=== PATIENT | female | born 1965 | race Caucasian/White ===

== ENCOUNTER 2016-06-27 13:43 | Emergency (ER) | payer BC ==
--- NOTE | 2016-06-27 14:51 | ED ---
Abdominal Pain HPI - General Chief Complaint: Abdominal Pain Stated Complaint: Abd Pain Time Seen by Provider: 06/27/16 14:29 Source: patient, RN notes reviewed Mode of arrival: ambulatory Limitations: no limitations - History of Present Illness Initial Comments: This is a 51-year-old female presents emergency Department chief complaint constipation. Patient states that she's had intermittent abdominal cramping and pain worse over the last 6 some days since she has not been a little bowel movement. Patient states she struggle with constipation throughout her life no she's been taken laxatives and suffers no relief. She has had multiple scopes by Dr. Francois. Patient states that she just cannot tolerate discomfort this time. Patient had a prior hysterectomy secondary to endometriosis. Patient denies fever, chills, nausea, vomiting. - Related Data Home Medications Medication Instructions Recorded Confirmed Docusate [Colace] 100 mg PO TID 06/27/16 06/27/16 Previous Rx's Medication Instructions Recorded Peg 3350-Na Sulf,Bicarb,Cl/KCl 4,000 ml PO DIRECTED #1 bottle 06/27/16 [Golytely Lavage] Allergies Allergy/AdvReac Type Severity Reaction Status Date / Time codeine Allergy Anaphylaxis Verified 06/27/16 14:29 Review of Systems ROS Statement: Those systems with pertinent positive or pertinent negative responses have been documented in the HPI. ROS Other: All systems not noted in ROS Statement are negative. Past Medical History Past Medical History: No Reported History Additional Past Medical History / Comment(s): bronchitis History of Any Multi-Drug Resistant Organisms: None Reported Past Surgical History: Back Surgery, Hysterectomy Past Psychological History: No Psychological Hx Reported Smoking Status: Current every day smoker Past Alcohol Use History: Occasional Past Drug Use History: None Reported General Exam Limitations: no limitations General appearance: alert, in no apparent distress Head exam: Present: atraumatic, normocephalic, normal inspection Respiratory exam: Present: normal lung sounds bilaterally. Absent: respiratory distress, wheezes, rales, rhonchi, stridor Cardiovascular Exam: Present: regular rate, normal rhythm, normal heart sounds. Absent: systolic murmur, diastolic murmur, rubs, gallop, clicks GI/Abdominal exam: Present: soft, normal bowel sounds. Absent: distended, tenderness, guarding, rebound, rigid Back exam: Absent: CVA tenderness (R), CVA tenderness (L) Skin exam: Present: warm, dry, intact, normal color. Absent: rash Course Vital Signs 06/27/16 13:57 Temperature 98.9 F Pulse Rate 79 Respiratory 18 Rate Blood Pressure 155/77 O2 Sat by Pulse 98 Oximetry Medical Decision Making - Medical Decision Making 51-year-old female presented emergency department patient. Patient's x-ray does show some stool noted Char overburden. Patient was offered lab states that she noticed constipation for patient's pain has been intermittent for last 7 days ever since she has not been able to help normal. There is no evidence of obstruction on x-ray. Patient did have an enema here which she had some stool out and states that she does have some relief of her symptoms. Patient is requesting further medication at home. Patient be given GoLYTELY to go home with return parameters discussed. Disposition Clinical Impression: Constipation Disposition: HOME SELF-CARE Condition: Stable Instructions: Constipation (ED) Additional Instructions: Please return to the Emergency Department if symptoms worsen or any other concerns. Prescriptions: Peg 3350-Na Sulf,Bicarb,Cl/KCl [Golytely Lavage] 4,000 ml PO DIRECTED #1 bottle Time of Disposition: 16:11
--- NOTE | 2016-06-27 15:00 | XR ---
Abdomen HISTORY: Constipation, pain Frontal view of the abdomen on 2 images Comparison to chest x-ray 04 August 2015 There is a spinal curvature, degenerative disc changes in the visualized spine. There is some bluntin g of the left costophrenic angle. No pneumoperitoneum or bowel obstruction is evident. The heart may be enlarged. IMPRESSION: Nonobstructive bowel gas pattern. Indeterminate blunting of the left costophrenic angle. There may be pleural reaction, pleural effusion, cardiomegaly.
[2016-06-27] MEDS ORDERED: PEG 3350-NA SULF,BICARB,CL/KCL 4,000 ML BOTTLE PO ONE (16:11)
[2016-06-27 16:40] VITALS: BP 116/67; PULSE 71; RESP 20; TEMP 97.9
== END 2016-06-27 16:40 | disposition home or self-care (01) ==
LOC: EC 13:43
DX: K59.00 Constipation, unspecified (principal); F17.200 Nicotine dependence, unspecified, uncomplicated; Z79.899 Other long term (current) drug therapy; Z88.5 Allergy status to narcotic agent; Z90.710 Acquired absence of both cervix and uterus
CPT/HCPCS: 74000; 99284

== ENCOUNTER 2017-09-08 15:42 | Inpatient (IN) | payer BC ==
[2017-09-08] MEDS ORDERED: IPRATROPIUM-ALBUTEROL 3 ML NEB INHALATION STA (16:14)
[2017-09-08] MEDS ORDERED: FAMOTIDINE 20 MG TAB PO STA (16:15)
--- NOTE | 2017-09-08 16:19 | ED ---
SOB HPI - General Chief Complaint: Shortness of Breath Stated Complaint: abnormal ekg Time Seen by Provider: 09/08/17 16:07 Source: patient Mode of arrival: ambulatory Limitations: no limitations - History of Present Illness Initial Comments: 52-year-old white female presents with a complaint of some shortness of breath, left calf pain, and left arm numbness. She states that she has had the left leg pain for approximately one year. She has never got it checked out as she states that it is hereditary and everyone in her family gets it. She complains of some increased swelling when she is on her feet a lot. She states that the left arm numbness and the shortness of breath of been present for approximately one month. She denies any cough or chest pain. She denies any measured temperature. She denies any anxiety problems. She denies any known previous cardiac or pulmonary disease. She quit smoking 2 years ago. She denies a history of COPD, asthma, or emphysema. She was seen at her primary care physician's office today and they sent her to the ER for further evaluation. No other complaints or modifying factors. - Related Data Home Medications Medication Instructions Recorded Confirmed Docusate [Colace] 100 mg PO DAILY PRN 06/27/16 09/08/17 Allergies Allergy/AdvReac Type Severity Reaction Status Date / Time codeine Allergy Anaphylaxis Verified 09/08/17 16:43 Review of Systems ROS Statement: Those systems with pertinent positive or pertinent negative responses have been documented in the HPI. ROS Other: All systems not noted in ROS Statement are negative. Past Medical History Past Medical History: No Reported History Additional Past Medical History / Comment(s): bronchitis History of Any Multi-Drug Resistant Organisms: None Reported Past Surgical History: Back Surgery, Hysterectomy Past Psychological History: No Psychological Hx Reported Smoking Status: Former smoker Past Alcohol Use History: Occasional Past Drug Use History: None Reported General Exam - General Exam Comments Initial Comments: GENERAL: The patient is well nourished and well hydrated. VITAL SIGNS: Heart rate, blood pressure, respiratory rate reviewed as recorded in nurse's notes. EYES: Pupils are round and reactive. Extraocular movements are intact. No conjunctival / lid redness or swelling. ENT: No external evidence of injury, swelling, or ecchymosis. Airway is patent. Throat is clear. NECK: Nontender. No swelling or evidence of injury. No subcutaneous emphysema. Trachea is midline. No thyroid mass. HEART: Regular rate and rhythm. Good peripheral pulses. LUNGS/CHEST: Breath sounds clear and equal bilaterally. No rales, rhonchi, or wheezes. No ecchymosis, subcutaneous emphysema, or tenderness. ABDOMEN: Abdomen soft without tenderness. No palpable masses or organomegaly. No peritoneal signs. No abdominal wall swelling or ecchymosis. EXTREMITIES: There is mild tenderness to the bilateral calf soreness worse on the left. There is no leg swelling noted. Normal muscle tone and function. No thoracolumbar tenderness. NEUROLOGIC: Sensation is grossly intact. Cranial nerve exam reveals face is symmetrical, tongue is midline, speech is clear. SKIN: No abrasions or ecchymosis is noted. No induration or masses noted. PSYCHIATRIC: Alert and oriented. Appropriate behavior and judgment. Limitations: no limitations Course Vital Signs 09/08/17 09/08/17 09/08/17 15:47 17:37 17:45 Temperature 99.2 F Pulse Rate 73 74 70 Pulse Rate [ Heat Transfer Technician ] Respiratory 18 18 Rate Blood Pressure 137/67 148/69 O2 Sat by Pulse 95 100 Oximetry 09/08/17 09/08/17 17:49 18:36 Temperature Pulse Rate 72 Pulse Rate [ 71 Heat Transfer Technician ] Respiratory Rate Blood Pressure O2 Sat by Pulse Oximetry Medical Decision Making - Medical Decision Making The patient is seen and examined. All diagnostics are reviewed. An IV is established and she is placed on a manager cardiac cath. She does receive some Pepcid as she was complaining of some heartburn type symptoms. She also receives a DuoNeb breathing treatment. The EKG is completed and shows a normal sinus rhythm at a rate of 69. There is T-wave inversions in the leads V1 through V5. There is no old EKGs for comparison. The DE intervals 186, QRS duration is 98, and the QTC intervals 443. The laboratory does show evidence of anemia and elevation of the liver function studies. The d-dimer is negative. The chest x-ray is reviewed and does not show any acute process. The lower extremity venous Doppler is negative for any evidence of DVT. The laboratories reviewed. There is evidence of anemia. The EKG changes certainly are fairly impressive overall. The possibility of acute coronary syndrome especially in light with the new EKG changes, shortness of breath, and left arm numbness certainly is possible. It is felt as though she would require admission to the hospital. She is agreeable to this plan. Case will be discussed with medicine shortly. - Lab Data Result diagrams: 09/08/17 16:59 09/08/17 16:59 Lab Results 09/08/17 09/08/17 09/08/17 Range/Units 16:59 16:59 16:59 WBC 3.5 L (3.8-10.6) k/uL RBC 2.99 L (3.80-5.40) m/uL Hgb 10.3 L (11.4-16.0) gm/dL Hct 32.7 L (34.0-46.0) % MCV 109.3 H (80.0-100.0) fL MCH 34.4 (25.0-35.0) pg MCHC 31.5 (31.0-37.0) g/dL RDW 14.4 (11.5-15.5) % Plt Count 175 (150-450) k/uL Neutrophils % 59 % Lymphocytes % 32 % Monocytes % 5 % Eosinophils % 2 % Basophils % 1 % Neutrophils # 2.1 (1.3-7.7) k/uL Lymphocytes # 1.1 (1.0-4.8) k/uL Monocytes # 0.2 (0-1.0) k/uL Eosinophils # 0.1 (0-0.7) k/uL Basophils # 0.0 (0-0.2) k/uL Manual Slide Review Performed Hypochromasia Slight Poikilocytosis (manual Present Macrocytosis Marked PT (9.0-12.0) sec INR (<1.2) APTT (22.0-30.0) sec D-Dimer (<0.60) mg/L FEU Sodium 142 (137-145) mmol/L Potassium 4.1 (3.5-5.1) mmol/L Chloride 103 (98-107) mmol/L Carbon Dioxide 26 (22-30) mmol/L Anion Gap 13 mmol/L BUN 18 H (7-17) mg/dL Creatinine 0.94 (0.52-1.04) mg/dL Est GFR (CKD-EPI)AfAm 81 (>60 ml/min/1.73 sqM) Est GFR (CKD-EPI)NonAf 71 (>60 ml/min/1.73 sqM) Glucose 93 (74-99) mg/dL Calcium 9.8 (8.4-10.2) mg/dL Total Bilirubin 1.5 H (0.2-1.3) mg/dL AST 37 H (14-36) U/L ALT 56 H (9-52) U/L Alkaline Phosphatase 47 (38-126) U/L Total Creatine Kinase 100 (30-135) U/L CK-MB (CK-2) 0.4 (0.0-2.4) ng/mL CK-MB (CK-2) Rel Index 0.4 Troponin I <0.012 (0.000-0.034) ng/mL NT-Pro-B Natriuret Pep pg/mL Total Protein 7.0 (6.3-8.2) g/dL Albumin 4.5 (3.5-5.0) g/dL 09/08/17 09/08/17 Range/Units 16:59 16:59 WBC (3.8-10.6) k/uL RBC (3.80-5.40) m/uL Hgb (11.4-16.0) gm/dL Hct (34.0-46.0) % MCV (80.0-100.0) fL MCH (25.0-35.0) pg MCHC (31.0-37.0) g/dL RDW (11.5-15.5) % Plt Count (150-450) k/uL Neutrophils % % Lymphocytes % % Monocytes % % Eosinophils % % Basophils % % Neutrophils # (1.3-7.7) k/uL Lymphocytes # (1.0-4.8) k/uL Monocytes # (0-1.0) k/uL Eosinophils # (0-0.7) k/uL Basophils # (0-0.2) k/uL Manual Slide Review Hypochromasia Poikilocytosis (manual Macrocytosis PT 10.6 (9.0-12.0) sec INR 1.1 (<1.2) APTT 24.6 (22.0-30.0) sec D-Dimer 0.38 (<0.60) mg/L FEU Sodium (137-145) mmol/L Potassium (3.5-5.1) mmol/L Chloride (98-107) mmol/L Carbon Dioxide (22-30) mmol/L Anion Gap mmol/L BUN (7-17) mg/dL Creatinine (0.52-1.04) mg/dL Est GFR (CKD-EPI)AfAm (>60 ml/min/1.73 sqM) Est GFR (CKD-EPI)NonAf (>60 ml/min/1.73 sqM) Glucose (74-99) mg/dL Calcium (8.4-10.2) mg/dL Total Bilirubin (0.2-1.3) mg/dL AST (14-36) U/L ALT (9-52) U/L Alkaline Phosphatase (38-126) U/L Total Creatine Kinase (30-135) U/L CK-MB (CK-2) (0.0-2.4) ng/mL CK-MB (CK-2) Rel Index Troponin I (0.000-0.034) ng/mL NT-Pro-B Natriuret Pep 45 pg/mL Total Protein (6.3-8.2) g/dL Albumin (3.5-5.0) g/dL Disposition Clinical Impression: Leg pain, Dyspnea, Left arm numbness, Anemia, Transaminitis, Acute electrocardiogram changes, Hypertension Disposition: ADMITTED IP TO THIS HOSP Condition: Good Is patient prescribed a controlled substance at d/c from ED?: No Time of Disposition: 19:29 Decision Date: 09/08/17 Decision Time: 19:29
[2017-09-08] MEDS ORDERED: NITROGLYCERIN OINT 1 INCH/GM PACKET TOPICAL STA (16:34)
[2017-09-08] MEDS ORDERED: ASPIRIN 81 MG PO STA (16:34)
--- NOTE | 2017-09-08 17:26 | XR ---
EXAMINATION: XR chest 2V DATE AND TIME: 09/08/2017 5:16 PM ORDERING PROVIDER: Padilla Nathan DO CLINICAL INDICATION: difficulty breathing TECHNIQUE: PA and lateral COMPARISON: 08/04/2015. DESCRIPTION: The lungs are clear. The pleural spaces are negative. The cardiac silhouette is not enlarged. The mediastinal and pleural silhouettes are unremarkable. The skeletal structures are intact without focal findings. The soft tissues are unremarkable. IMPRESSION: NO ACUTE PROCESS.
[2017-09-08 17:47] LABS: Basophils % (A) 1 %; Eosinophils # (A) 0.1 k/uL (0-0.7); Eosinophils % (A) 2 %; HCT 32.7 % (34.0-46.0); HGB 10.3 gm/dL (11.4-16.0); Hypochromasia Slight; Lymphocytes # (A) 1.1 k/uL (1.0-4.8); Lymphocytes % (A) 32 %; MCH 34.4 pg (25.0-35.0); MCHC 31.5 g/dL (31.0-37.0); MCV 109.3 fL (80.0-100.0); Macrocytosis Marked; Mean Platelet Volume 6.8; Monocytes # (A) 0.2 k/uL (0-1.0); Monocytes % (A) 5 %; Neutrophils # (A) 2.1 k/uL (1.3-7.7); Neutrophils % (A) 59 %; Platelet Count 175 k/uL (150-450); RBC 2.99 m/uL (3.80-5.40); RDW 14.4 % (11.5-15.5); WBC 3.5 k/uL (3.8-10.6)
[2017-09-08 17:59] LABS: Albumin 4.5 g/dL (3.5-5.0); Calcium 9.8 mg/dL (8.4-10.2); Potassium 4.1 mmol/L (3.5-5.1); Total Bilirubin 1.5 mg/dL (0.2-1.3)
[2017-09-08 18:01] LABS: D-Dimer 0.38 mg/L FEU (<0.60); INR 1.1 (<1.2); Partial Thromboplastin Time 24.6 sec (22.0-30.0); Prothrombin Time 10.6 sec (9.0-12.0)
[2017-09-08 18:05] LABS: Creatine Kinase 100 U/L (30-135)
[2017-09-08 18:09] LABS: Poikilocytosis (M) Present
[2017-09-08 18:19] LABS: Creatine Kinase MB 0.4 ng/mL (0.0-2.4); Troponin I <0.012 ng/mL (0.000-0.034)
--- NOTE | 2017-09-08 19:08 | US ---
EXAMINATION TYPE: US venous doppler duplex LE DATE OF EXAM: 09/08/2017 6:37 PM COMPARISON: NONE CLINICAL HISTORY: Pain. Swelling SIDE PERFORMED: Bilateral TECHNIQUE: The lower extremity deep venous system is examined utilizing real time linear array sonog renae with graded compression, doppler sonography and color-flow sonography. VESSELS IMAGED: External Iliac Vein (EIV) Common Femoral Vein Deep Femoral Vein Greater Saphenous Vein * Femoral Vein Popliteal Vein Small Saphenous Vein * Proximal Calf Veins (* superficial vessels) FINDINGS: Grayscale, color doppler, spectral doppler imaging performed of the deep veins of the lower extremities. There is normal flow, compressibility, vascular waveforms. IMPRESSION: NEGATIVE FOR DVT, BILATERAL LOWER EXTREMITIES.
[2017-09-08] MEDS ORDERED: HEPARIN SODIUM,PORCINE 5,000 UNIT/ML 1 ML VIAL IV PRN (19:30)
[2017-09-08] MEDS ORDERED: HEPARIN SODIUM,PORCINE 5,000 UNIT/ML 1 ML VIAL IV ONE (19:30)
[2017-09-08] MEDS ORDERED: NITROGLYCERIN SL TABS 0.4 MG TAB SUBLINGUAL PRN (19:30)
[2017-09-08] MEDS ORDERED: DOCUSATE 100 MG CAP PO PRN (19:33)
[2017-09-08] MEDS: HEPARIN SODIUM,PORCINE/D5W PMX 25,000 UNIT in DEXTROSE/WATER 1 500ML.BAG IV SCH (19:50)
[2017-09-08] MEDS: METOPROLOL TARTRATE 25 MG TAB PO SCH (21:41)
[2017-09-08 23:08] LABS: Creatine Kinase 72 U/L (30-135)
[2017-09-08 23:20] LABS: Creatine Kinase MB 0.3 ng/mL (0.0-2.4); Troponin I <0.012 ng/mL (0.000-0.034)
[2017-09-08] MEDS: NITROGLYCERIN OINT 1 INCH/GM PACKET TOPICAL SCH (23:29)
[2017-09-09 01:59] LABS: Cholesterol 149 mg/dL (<200); HDL Cholesterol 28 mg/dL (40-60); LDL Cholesterol,Calculated 78 mg/dL (0-99); Triglycerides 213 mg/dL (<150)
[2017-09-09] MEDS: NITROGLYCERIN OINT 1 INCH/GM PACKET TOPICAL SCH ×3 (03:19→20:09)
[2017-09-09 06:48] LABS: Creatine Kinase 54 U/L (30-135)
[2017-09-09 07:00] LABS: Creatine Kinase MB 0.3 ng/mL (0.0-2.4); Troponin I <0.012 ng/mL (0.000-0.034)
[2017-09-09] MEDS: ASPIRIN 325 MG TAB PO SCH (08:43)
[2017-09-09] MEDS ORDERED: ALPRAZolam 0.25 MG TAB PO PRN (12:12)
[2017-09-09] MEDS ORDERED: SODIUM CHLORIDE 0.9% 1,000 ML in EMPTY BAG 1 BAG IV ONE (12:12)
[2017-09-09] MEDS ORDERED: NITROGLYCERIN SL TABS 0.4 MG TAB SUBLINGUAL PRN (12:12)
[2017-09-09] MEDS ORDERED: ALPRAZolam 0.5 MG TAB PO PRN (12:12)
[2017-09-09] MEDS ORDERED: ATORVASTATIN 80 MG TAB PO STA (12:12)
[2017-09-09] MEDS ORDERED: ASPIRIN 325 MG TAB PO STA (12:12)
--- NOTE | 2017-09-09 12:12 | P.CRDCN ---
History of Present Illness Consult date: 09/09/17 Requesting physician: Michele Rider Consult reason: chest pain Chief complaint: Left leg swelling, epigastric pain, abdominal pain History of present illness: This is a 52-year-old female with no prior documented history of hypertension, no diabetes, no hyperlipidemia, prior history of smoking, who presents to the hospital with symptoms of left leg swelling, she also has been having intermittent epigastric burning which she attributes to her acid reflux, also complaining of lower abdominal pain. Cardiology consultation was requested because of the epigastric burning and the intermittent shortness of breath which she states she's been experiencing. She had an EKG on admission here which showed a normal sinus rhythm with left axis deviation, incomplete right bundle branch block, ST-T wave abnormalities noted in the anterior and inferior leads with evidence of inferior Q waves. According to the patient, she 's been experiencing these heartburn symptoms off and on for some time with or without activity with or without eating. The abdominal discomfort she is complaining of is in the lower abdominal area, she states that she has issues with constipation, and has not moved her bowels since Friday. A venous duplex study of the lower extremities did not reveal any evidence of DVT. Chest x-ray did not reveal any acute process. Blood pressure on admission here 136/60 with a heart rate in the 70s, 95% on room air. Temperature on arrival 99.2. Blood pressure this morning 138/80 with a heart rate in the 60s, 96% on room air. Temperature 97.6. White blood cell count 3.5, hemoglobin 10.3, d-dimer 0.3. Sodium 142, potassium 4.1, BUN 18, creatinine 0.9. Troponin 7 negative 3. BNP level 45. Total bilirubin 1.5, AST 37, ALT 56. Cholesterol 149, LDL 78, triglycerides 216 and HDL 28. At the time of my examination this morning, patient does have significant abdominal and epigastric tenderness on examination. No significant swelling noted in the left leg today. Past Medical History Past Medical History: Pneumonia Additional Past Medical History / Comment(s): bronchitis,hx endometreosis, bells palsy 2009, mono age 26, lt wrist fx-casted,[facility] - [facility], constipation, hemorrhoids(occ blood in stool), when younger had low blood sugar, sciatica, "i was told i was a bleeded" i used to get nose bleeds History of Any Multi-Drug Resistant Organisms: None Reported Past Surgical History: Back Surgery, Hysterectomy, Tonsillectomy Additional Past Surgical History / Comment(s): cyst removed lt lower eye lid, laminectomy L2,3,4. TOTAL HYSTERECTOMY AND LASER SX TO KIDNEY/BOWEL ALL D/T ENDOMETREOSIS. Past Anesthesia/Blood Transfusion Reactions: No Reported Reaction Smoking Status: Former smoker - Past Family History Father History Unknown: Yes Mother Family Medical History: Cancer, Coronary Artery Disease (CAD) Additional Family Medical History / Comment(s): 5 time cancer surviver. had cervical,breast,colon,pancrease,liver. cabg, djd, ddd, pvd Medications and Allergies Home Medications Medication Instructions Recorded Confirmed Type Docusate [Colace] 100 mg PO DAILY PRN 06/27/16 09/08/17 History Allergies Allergy/AdvReac Type Severity Reaction Status Date / Time codeine Allergy Anaphylaxis Verified 09/08/17 16:43 Physical Exam Vitals: Vital Signs Temp Pulse Pulse Resp BP BP Pulse Ox 09/09/17 08:41 97.6 F 60 16 138/80 96 09/09/17 08:06 60 17 09/09/17 04:00 59 L 17 113/61 94 L 09/09/17 00:00 97.6 F 64 16 112/58 94 L 09/08/17 21:04 97.8 F 68 17 128/66 96 09/08/17 19:48 98.3 F 70 18 113/66 95 09/08/17 18:36 71 09/08/17 17:49 72 09/08/17 17:45 70 18 148/69 100 09/08/17 17:37 74 09/08/17 15:47 99.2 F 73 18 137/67 95 Intake and Output 09/08/17 09/09/17 09/09/17 22:59 06:59 14:59 Intake Total 294.333 Balance 294.333 Intake: IV 160 Heparin Sodium,Porcine/ 160 D5w Pmx 25,000 unit In Dextrose/Water 1 500ml. bag @ 9.036 UNITS/KG/HR 20 mls/hr IV .Q24H [facility] Rx #:[id number] Intake, IV Titration 134.333 Amount Heparin Sodium,Porcine/ 134.333 D5w Pmx 25,000 unit In Dextrose/Water 1 500ml. bag @ 9.036 UNITS/KG/HR 20 mls/hr IV .Q24H [facility] Rx #:[id number] Other: Voiding Method Toilet Toilet Toilet # Voids 1 1 Weight 110.677 kg 110.4 kg PHYSICAL EXAMINATION: GENERAL: 52-year-old female complaining of lower abdominal and midepigastric discomfort this morning. HEENT: Head is atraumatic, normocephalic. Pupils equal, round. Sclera anicteric. Conjunctiva are clear. Mucous membranes of the mouth are moist. Neck is supple. There is no elevated jugular venous pressure.] No carotid bruit is heard. HEART EXAMINATION: Heart S1 and S2 with systolic murmur is heard CHEST EXAMINATION: Lungs are clear to auscultation and precussion. No chest wall tenderness is noted on palpation or with deep breathing. ABDOMEN: Soft, positive midepigastric discomfort and lower abdominal tenderness on exam. Bowel sounds are heard. No organomegaly noted. EXTREMITIES: 2+ peripheral pulses with no evidence of peripheral edema and no calf tenderness noted. NEUROLOGIC patient is awake, alert and oriented -3. . Results 09/08/17 16:59 09/08/17 16:59 Cardiac Enzymes 09/08/17 09/08/17 09/08/17 Range/Units 16:59 16:59 22:28 AST 37 H (14-36) U/L CK-MB (CK-2) 0.4 0.3 (0.0-2.4) ng/mL Troponin I <0.012 <0.012 (0.000-0.034) ng/mL 09/09/17 Range/Units 05:30 AST (14-36) U/L CK-MB (CK-2) 0.3 (0.0-2.4) ng/mL Troponin I <0.012 (0.000-0.034) ng/mL Coagulation 09/08/17 09/09/17 09/09/17 Range/Units 16:59 01:17 05:30 PT 10.6 (9.0-12.0) sec APTT 24.6 30.1 H 46.9 H (22.0-30.0) sec Lipids 09/09/17 Range/Units 01:17 Triglycerides 213 H (<150) mg/dL Cholesterol 149 (<200) mg/dL HDL Cholesterol 28 L (40-60) mg/dL CBC 09/08/17 Range/Units 16:59 WBC 3.5 L (3.8-10.6) k/uL RBC 2.99 L (3.80-5.40) m/uL Hgb 10.3 L (11.4-16.0) gm/dL Hct 32.7 L (34.0-46.0) % Plt Count 175 (150-450) k/uL Comprehensive Metabolic Panel 09/08/17 Range/Units 16:59 Sodium 142 (137-145) mmol/L Potassium 4.1 (3.5-5.1) mmol/L Chloride 103 (98-107) mmol/L Carbon Dioxide 26 (22-30) mmol/L BUN 18 H (7-17) mg/dL Creatinine 0.94 (0.52-1.04) mg/dL Glucose 93 (74-99) mg/dL Calcium 9.8 (8.4-10.2) mg/dL AST 37 H (14-36) U/L ALT 56 H (9-52) U/L Alkaline Phosphatase 47 (38-126) U/L Total Protein 7.0 (6.3-8.2) g/dL Albumin 4.5 (3.5-5.0) g/dL Current Medications Generic Name Dose Route Start Last Admin Trade Name Freq PRN Reason Stop Dose Admin Aspirin 325 mg 09/09/17 09:00 09/09/17 08:43 Aspirin PO 325 mg DAILY MICHELE Administration Docusate Sodium 100 mg 09/08/17 19:33 Colace PO DAILY PRN Constipation Heparin Sodium (Porcine) 0 unit 09/08/17 19:30 09/09/17 02:32 Heparin IV 4,000 unit Q6HR PRN Administration Low PTT Protocol Heparin Sodium/Dextrose 25,000 500 mls @ 20 mls/hr 09/08/17 19:45 09/09/17 02 :33 unit/ IV Solution IV 12.03 units/kg/hr .Q24H MICHELE 26.62 mls/hr Protocol Titration 9.036 UNITS/KG/HR Metoprolol Tartrate 25 mg 09/08/17 21:00 09/08/17 21:41 Lopressor PO 25 mg BID MICHELE Administration Nitroglycerin 1 inch 09/09/17 00:00 09/09/17 03:19 Nitro-Bid Oint TOPICAL Not Given Q6HR [facility] Nitroglycerin 0.4 mg 09/08/17 19:30 Nitrostat SUBLINGUAL Q5M PRN Chest Pain Intake and Output 09/08/17 09/09/17 09/09/17 22:59 06:59 14:59 Intake Total 294.333 Balance 294.333 Intake: IV 160 Heparin Sodium,Porcine/ 160 D5w Pmx 25,000 unit In Dextrose/Water 1 500ml. bag @ 9.036 UNITS/KG/HR 20 mls/hr IV .Q24H [facility] Rx #:[id number] Intake, IV Titration 134.333 Amount Heparin Sodium,Porcine/ 134.333 D5w Pmx 25,000 unit In Dextrose/Water 1 500ml. bag @ 9.036 UNITS/KG/HR 20 mls/hr IV .Q24H [facility] Rx #:[id number] Other: Voiding Method Toilet Toilet Toilet # Voids 1 1 Weight 110.677 kg 110.4 kg 09/08/17 16:59 09/08/17 16:59 EKG Interpretations (text) EKG shows a normal sinus rhythm with T-wave inversion in the anterior and inferior leads, inferior Q waves also noted. Repeat EKG shows some improvement in the T-wave inversion. Assessment and Plan Plan: Assessment and plan #1 left leg swelling, VQ scan negative for DVT. #2 epigastric discomfort, somewhat atypical for acute coronary syndrome. Troponins are negative 3. EKG shows a normal sinus rhythm with anterior and inferior T-wave inversion with inferior Q waves. #3 abdominal discomfort, abnormal liver enzymes #4 prior history of smoking Plan We will obtain an echocardiogram with Doppler study. Ultrasound of the gallbladder will be ordered. Because of the EKG changes, patient has been advised to undergo cardiac catheterization, the risks and benefits were explained to the patient in detail. This will be performed tomorrow by Dr. Agueda Campuzano. Further recommendations will be based on these findings and patient's clinical course. DNP note has been reviewed, I agree with a documented findings and plan of care. Patient was seen and examined.
--- NOTE | 2017-09-09 12:33 | US ---
EXAMINATION TYPE: US gallbladder DATE OF EXAM: 09/09/2017 COMPARISON: NONE CLINICAL HISTORY: abd pain, abn liver enzymes. Elevated LFT's, ABD pain EXAM MEASUREMENTS: Liver Length: 21.2 cm Gallbladder Wall: 0.2 cm CBD: 0.3 cm Right Kidney: 11.5 x 4.5 x 4.5 cm Large pt body habitus Pancreas: obscured by overlying bowel gas Liver: Enlarged, heterogeneous, extremely difficult to penetrate Gallbladder: wnl Evidence for sonographic Torres's sign: Yes CBD: wnl Right Kidney: wnl IMPRESSION: 1. Hepatomegaly with heterogeneous pattern of liver can be seen with fatty infiltration, hepatitis or diffuse hepatocellular disease. Correlate clinically.
[2017-09-09] MEDS ORDERED: BISACODYL 10 MG SUPP RECTAL PRN (13:35)
[2017-09-09] MEDS ORDERED: POLYETHYLENE GLYCOL 3350 17 GM POWD.PACK PO PRN (13:35)
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
--- NOTE | 2017-09-09 13:44 | ECHOF ---
Referral Reason:sob MEASUREMENTS -------- HEIGHT: 172.7 cm WEIGHT: 110.2 kg BP: 113/61 RVIDd: 3.8 cm (< 3.3) IVSd: 1.2 cm (0.6 - 1.1) LVIDd: 4.0 cm (3.9 - 5.3) LVPWd: 1.2 cm (0.6 - 1.1) IVSs: 1.5 cm LVIDs: 2.2 cm LVPWs: 1.5 cm LAESV Index (A-L): 18.98 ml/m EPSS: 0.2 cm MV E Aj: 0.78 m/s MV DecT: 390 ms MV A Aj: 0.84 m/s MV E/A Ratio: 0.93 RAP: 5.00 mmHg RVSP: 44.60 mmHg MV EF SLOPE: 58.19 mm/s (70 - 150) MV EXCURSION: 1.53 cm (> 18.000) FINDINGS -------- Sinus rhythm. This was a technically adequate study. The left ventricular size is normal. There is mild concentric left ventricular hypertrophy. Overa ll left ventricular systolic function is normal with, an EF between 55 - 60 %. The right ventricle is mild to moderately enlarged. The right ventricular systolic function is mild ly impaired. Normal LA size by volume 22+/-6 ml/m2. The right atrium is markedly enlarged. The aortic valve is trileaflet, and appears structurally normal. No aortic stenosis or regurgitation. The mitral valve is normal. Mild mitral regurgitation is present. 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 Moderate tricuspid regurgitation present. There is mild pulmonary hypertension. The right vent ricular systolic pressure, as measured by Doppler, is 44.60mmHg. There is no pulmonic regurgitation present. The aortic root size is normal. Normal inferior vena cava with normal inspiratory collapse consistent with estimated right atrial pre ssure of 5 mmHg. There is no pericardial effusion. CONCLUSIONS -------- 1. Sinus rhythm. 2. This was a technically adequate study. 3. The left ventricular size is normal. 4. There is mild concentric left ventricular hypertrophy. 5. Overall left ventricular systolic function is normal with, an EF between 55 - 60 %. 6. The right ventricle is mild to moderately enlarged. 7. The right ventricular systolic function is mildly impaired. 8. Normal LA size by volume 22+/-6 ml/m2. 9. The right atrium is markedly enlarged. 10. The aortic valve is trileaflet, and appears structurally normal. No aortic stenosis or regurgitat ion. 11. Mild mitral regurgitation is present. 12. Two dimensional and doppler echocardiography demonstrates findings consistent with Ebstien's anom juan miguel. 13. Moderate tricuspid regurgitation present. 14. There is mild pulmonary hypertension. 15. There is no pulmonic regurgitation present. 16. The aortic root size is normal. 17. There is no pericardial effusion. SHUTTLE PREPARATION SUPERVISOR: Juan Middleton RDCS
[2017-09-09] MEDS ORDERED: AMINOPHYLLINE 500 MG/20 ML VIAL IV PRN (14:39)
[2017-09-09] MEDS ORDERED: REGADENOSON 0.4 MG/5 ML SYRINGE IV ONE (14:39)
[2017-09-09] MEDS: METOPROLOL TARTRATE 25 MG TAB PO SCH ×2 (18:05→21:38)
[2017-09-09 18:15] LABS: Iron Saturation 37.76 (12.00-45.00)
[2017-09-09] MEDS: HEPARIN SODIUM,PORCINE/D5W PMX 25,000 UNIT in DEXTROSE/WATER 1 500ML.BAG IV SCH (20:18)
[2017-09-09] MEDS: FAMOTIDINE 20 MG TAB PO SCH (20:28)
[2017-09-09] MEDS: HEPARIN SODIUM,PORCINE 5,000 UNIT/ML 1 ML VIAL SQ SCH (21:38)
[2017-09-10 01:48] VITALS: RESP 18
[2017-09-10] MEDS: NITROGLYCERIN OINT 1 INCH/GM PACKET TOPICAL SCH ×4 (06:27→12:14)
[2017-09-10] MEDS: FAMOTIDINE 20 MG TAB PO SCH (06:30)
[2017-09-10 06:58] LABS: Basophils % (A) 1 %; Eosinophils # (A) 0.1 k/uL (0-0.7); Eosinophils % (A) 2 %; HCT 35.2 % (34.0-46.0); HGB 11.2 gm/dL (11.4-16.0); Hypochromasia Slight; Lymphocytes # (A) 0.9 k/uL (1.0-4.8); Lymphocytes % (A) 33 %; MCH 34.3 pg (25.0-35.0); MCHC 31.9 g/dL (31.0-37.0); MCV 107.7 fL (80.0-100.0); Macrocytosis Moderate; Mean Platelet Volume 8.3; Monocytes # (A) 0.1 k/uL (0-1.0); Monocytes % (A) 4 %; Neutrophils # (A) 1.6 k/uL (1.3-7.7); Neutrophils % (A) 59 %; Platelet Count 191 k/uL (150-450); RBC 3.27 m/uL (3.80-5.40); RDW 14.3 % (11.5-15.5); WBC 2.7 k/uL (3.8-10.6)
[2017-09-10 07:11] LABS: Albumin 4.6 g/dL (3.5-5.0); Calcium 9.6 mg/dL (8.4-10.2); Potassium 4.7 mmol/L (3.5-5.1); Total Bilirubin 1.7 mg/dL (0.2-1.3); Total Protein 7.1 g/dL (6.3-8.2)
[2017-09-10] MEDS: HEPARIN SODIUM,PORCINE 5,000 UNIT/ML 1 ML VIAL SQ SCH (08:29)
[2017-09-10] MEDS: ASPIRIN 325 MG TAB PO SCH (08:29)
[2017-09-10] MEDS: METOPROLOL TARTRATE 25 MG TAB PO SCH (08:29)
--- NOTE | 2017-09-10 09:24 | P.PN ---
Progress Note - Text Progress Note Date: 09/10/17 This is an addendum to cardiology consultation dictated yesterday. 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 Patient then was canceled for her heart And scheduled today to undergo a Lexiscan stress test. DNP note has been reviewed, I agree with a documented findings and plan of care. Patient was seen and examined.
--- NOTE | 2017-09-10 10:02 | P.PN ---
Subjective Progress Note Date: 09/10/17 52-year-old female who was sent to the emergency room for further evaluation after she was seen at her primary care physician's office yesterday. Patient states she was evaluated by the AQUACULTURE FARM MANAGER at the office for complaints of intermittent shortness of breath. An EKG was performed which revealed T-wave inversion in V1-V5. The patient reports chronic left lower extremity pain and occasional swelling. She denies shortness of breath or chest pain at the time of examination. She reported some left arm numbness in the emergency room but denies left arm numbness, tingling, or pain at the time of evaluation. She denies nausea or vomiting. Denies change in bowel or bladder habits. The patient has a history of pneumonia, bronchitis, endometriosis, Sage's palsy , constipation and hemorrhoids. She is a former cigarette smoker. She began smoking at age 17 and smoked 1 pack per day. She reports that she quit smoking in 2017. Chest x-ray: Negative for acute process Venous Doppler: Negative for DVT bilaterally of lower extremities Laboratory data: WBC 3.5. Hemoglobin 10.3. Platelet count 175. Sodium 142. Potassium 4.1. BUN 18. Creatinine 0.94. Total bilirubin 1.5. AST 37. ALT 56. Alkaline phosphatase 47. Troponins: Negative 3 BNP: 45 D-dimer: 0.38 The patient was admitted to the hospital under the care of Dr. Rider. Consultations were placed to cardiology. The patient was seen and examined at the bedside on rounds with Dr. Rider. At the time of examination, patient is denying chest pain or pressure. She denies shortness of breath. She denies any pain or discomfort. She is anxious to be discharged from the hospital and states "I am feeling fine. I want to go home". Dr. Rider discussed patient's previous symptoms and EKG findings with patient. Patient aware that cardiology has been consulted to evaluate her. Also discussed elevated liver enzymes and anemia with patient. Patient appears hesitant to reveal specific quantities of alcohol. She states she does not drink every day, but drinks more than once a week. Patient reports drinking beer and liquor. Patient states she was cutting the grass over the weekend and was drinking coconut rum while mowing her lawn. 09/10/2017 Patient seen and examined at the bedside. Patient states she is feeling well this morning. She is hoping to be discharged home later today. She states she did have severe heartburn last night. Patient states she does not take medications outpatient for GERD but will just use TUMS or other OTC medication PRN. She does state that in the past she was on Prevacaid and that helped her heartburn. She is requesting a rx for prevacaid at the time of DC. Ultrasound of the gallbladder was completed yesterday which revealed a normal-appearing gallbladder. Hepatomegaly with heterogeneous pattern of liver can be seen with fatty infiltrates, hepatitis or diffuse hepatocellular disease. Echocardiogram was completed yesterday revealing ejection fraction of 55-60%, right ventricle is mild to moderately enlarged, right atrium is enlarged, mild mitral regurgitation, moderate tricuspid regurgitation, mild pulmonary hypertension. 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 Case was discussed with cardiology yesterday who states that patient's EKG changes are consistent with Ebstein's anomaly. The patient is scheduled for a stress test this morning. Hemoglobin this morning is 11.2, up from 10.3. Iron studies reveal iron level of 108, TIBC 286, iron saturation 37.76, ferritin 395.2, vitamin B12 254, folate 8.0, RBC folate 1141. Objective - Vital Signs Vital signs: Vital Signs Temp 98.3 F 09/10/17 08:01 Pulse 68 09/10/17 08:01 Resp 18 09/10/17 08:01 BP 130/70 09/10/17 08:01 Pulse Ox 98 09/10/17 08:01 Intake & Output 09/09/17 09/10/17 09/10/17 18:59 06:59 18:59 Intake Total 720 Balance 720 Weight 108.8 kg 108.409 kg Intake: Oral 720 Other: Voiding Method Toilet Toilet Toilet # Voids 2 1 # Bowel Movements 0 - Exam GENERAL: This is a 52-year-old female in no apparent distress at the time of examination. Pleasant and cooperative. HEENT: Head is atraumatic, normocephalic. Pupils are equal, round, and reactive to light. Sclerae anicteric. Conjunctivae are clear. Mucus membranes of the mouth are moist. Neck is supple. RESPIRATORY: Clear to ausculation. No wheezes, rales, or rhonchi. No use of accessory muscles. Patient maintaining oxygen saturation greater than 92%. No chest wall tenderness is noted on palpation or with deep breathing. CARDIOVASCULAR: Regular rate and rhythm. S1 and S2 noted. Systolic murmur auscultated. No JVD noted. No S3 or S4 noted. GASTROINTESTINAL: No distention noted. Abdomen soft and round. Normal active bowel sounds auscultated x 4 quadrants. No pain or tenderness noted upon palpation. INTEGUMENTARY: No cyanosis. No jaundice. No rashes noted. No cellulitis noted. EXTREMITIES: 2+ peripheral pulses. No evidence of peripheral edema. Tenderness noted upon palpation of left lower extremity. NEUROLOGIC: Cranial nerves II-XII intact. PSYCHIATRIC: Awake, alert, and oriented X 3. Appropriate affect. Intact judgement and insight. - Labs CBC & Chem 7: 09/10/17 06:40 09/10/17 06:40 Labs: Abnormal Lab Results - Last 24 Hours (Table) 09/09/17 09/09/17 09/10/17 Range/Units 05:30 05:30 06:40 WBC 2.7 L (3.8-10.6) k/uL RBC 3.27 L (3.80-5.40) m/uL Hgb 11.2 L (11.4-16.0) gm/dL MCV 107.7 H (80.0-100.0) fL Lymphocytes # 0.9 L (1.0-4.8) k/uL Glucose (74-99) mg/dL Ferritin 395.2 H (10.0-291.0) ng/mL Total Bilirubin (0.2-1.3) mg/dL ALT (9-52) U/L RBC Folate 1,141 H (280 - 791) ng/mL 09/10/17 Range/Units 06:40 WBC (3.8-10.6) k/uL RBC (3.80-5.40) m/uL Hgb (11.4-16.0) gm/dL MCV (80.0-100.0) fL Lymphocytes # (1.0-4.8) k/uL Glucose 103 H (74-99) mg/dL Ferritin (10.0-291.0) ng/mL Total Bilirubin 1.7 H (0.2-1.3) mg/dL ALT 60 H (9-52) U/L RBC Folate (280 - 791) ng/mL Microbiology - Last 24 Hours (Table) 09/08/17 16:59 Blood Culture - Preliminary Blood No Growth after 24 hours Assessment and Plan Plan: ASSESSMENT: Complains of intermittent shortness of breath with left arm numbness, troponin negative x 3, present on admission, with T-wave inversions noted on EKG, echo revealed Ebstein's anomaly which can cause these EKG changes Chronic left lower extremity edema and discomfort, venous doppler negative for DVT Mildly elevated liver enzymes, etiology unclear, may be secondary to frequent alcohol use Macrocytic, normochromic anemia, type unknown, B12 or folic acid deficiency ruled out History of nicotine dependence, in remission, patient quit smoking in 2017 Obesity: BMI 37.0 PLAN: Cardiology on consult. Appreciate recommendations and input Patient scheduled for stress test today Recommend JAMIA hose to bilateral lower extremities and elevation while in bed Recommend decreasing alcohol intake Home meds as appropriate Monitor labs GI prophylaxis: Pepcid 20 mg by mouth twice a day DVT prophylaxis: Heparin 5000 units subcu every 12 hours Monitor vital signs and address as appropriate Discharge planning: Patient to return home when stable Further recommendations pending patient's course Nurse practitioner note has been reviewed by physician. Signing provider agrees with the documented findings, assessment, and plan of care.
--- NOTE | 2017-09-10 10:31 | NM ---
EXAMINATION TYPE: NM stress lexiscan cardiolite DATE OF EXAM: 09/10/2017 COMPARISON: NONE HISTORY: Chest pain TECHNIQUE: After the intravenous administration of 10.12 mCi Tc 99m Sestamibi - Cardiolite resting S PECT images acquired 45 minutes post injection. The patient received 0.4mg Lexiscan, 26.7 mCi Tc 99m Sestamibi - Stress images obtained [address] injection FINDINGS: Review of stress and rest SPECT images demonstrates small area of reduced uptake involving the inferi or septum on stress images. Gated analysis shows normal wall motion with an estimated left ventricula r ejection fraction of 63 %. IMPRESSION: 1. Question of a small area of stress-induced reversible ischemia involving the inferior septum corre late clinically. 2. Ejection fraction of 63%.
[2017-09-10 12:57] VITALS: BP 120/74; PULSE 70; TEMP 98
--- NOTE | 2017-09-10 13:54 | P.DS ---
Providers Date of admission: 09/08/17 19:30 Expected date of discharge: 09/10/17 Attending physician: Michele Rider Consults: 09/08/17 19:30 Consult Physician Urgent Consulting Provider: Jeffrey Dalton Consult Reason/Comments: possible acs Do you want consulting provider notified?: Yes Primary care physician: Michele Tereso [facility] Course: 52-year-old female who was sent to the emergency room for further evaluation after she was seen at her primary care physician's office yesterday. Patient states she was evaluated by the ECHO TECHNOLOGIST at the office for complaints of intermittent shortness of breath. An EKG was performed which revealed T-wave inversion in V1-V5. The patient reports chronic left lower extremity pain and occasional swelling. She denies shortness of breath or chest pain at the time of examination. She reported some left arm numbness in the emergency room but denies left arm numbness, tingling, or pain at the time of evaluation. She denies nausea or vomiting. Denies change in bowel or bladder habits. The patient has a history of pneumonia, bronchitis, endometriosis, Sage's palsy , constipation and hemorrhoids. She is a former cigarette smoker. She began smoking at age 17 and smoked 1 pack per day. She reports that she quit smoking in 2017. Chest x-ray: Negative for acute process Venous Doppler: Negative for DVT bilaterally of lower extremities Laboratory data: WBC 3.5. Hemoglobin 10.3. Platelet count 175. Sodium 142. Potassium 4.1. BUN 18. Creatinine 0.94. Total bilirubin 1.5. AST 37. ALT 56. Alkaline phosphatase 47. Troponins: Negative 3 BNP: 45 D-dimer: 0.38 The patient was admitted to the hospital under the care of Dr. Rider. Consultations were placed to cardiology. The patient was seen and examined at the bedside on rounds with Dr. Rider. At the time of examination, patient is denying chest pain or pressure. She denies shortness of breath. She denies any pain or discomfort. She is anxious to be discharged from the hospital and states "I am feeling fine. I want to go home". Dr. Rider discussed patient's previous symptoms and EKG findings with patient. Patient aware that cardiology has been consulted to evaluate her. Also discussed elevated liver enzymes and anemia with patient. Patient appears hesitant to reveal specific quantities of alcohol. She states she does not drink every day, but drinks more than once a week. Patient reports drinking beer and liquor. Patient states she was cutting the grass over the weekend and was drinking coconut rum while mowing her lawn. 09/10/2017 Patient seen and examined at the bedside. Patient states she is feeling well this morning. She is hoping to be discharged home later today. She states she did have severe heartburn last night. Patient states she does not take medications outpatient for GERD but will just use TUMS or other OTC medication PRN. She does state that in the past she was on Prevacaid and that helped her heartburn. She is requesting a rx for prevacaid at the time of DC. Ultrasound of the gallbladder was completed yesterday which revealed a normal-appearing gallbladder. Hepatomegaly with heterogeneous pattern of liver can be seen with fatty infiltrates, hepatitis or diffuse hepatocellular disease. Echocardiogram was completed yesterday revealing ejection fraction of 55-60%, right ventricle is mild to moderately enlarged, right atrium is enlarged, mild mitral regurgitation, moderate tricuspid regurgitation, mild pulmonary hypertension. 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 Case was discussed with cardiology yesterday who states that patient's EKG changes are consistent with Ebstein's anomaly. The patient is scheduled for a stress test this morning. Hemoglobin this morning is 11.2, up from 10.3. Iron studies reveal iron level of 108, TIBC 286, iron saturation 37.76, ferritin 395.2, vitamin B12 254, folate 8.0, RBC folate 1141. The patient underwent a stress test on 09/10/2017 which revealed questionable small area of stress-induced reversible ischemia involving the inferior septum. Ejection fraction of 63%. The patient was cleared for discharge from a cardiology standpoint and she was advised to follow up on an outpatient basis for further evaluation. The patient was deemed stable for discharge per Dr. Rider. She is to follow up on an outpatient basis with her primary care physician and cardiology. A prescription for Prevacid was sent to the patient's preferred pharmacy per her request for heartburn. DISCHARGE DIAGNOSIS: Complaints of intermittent shortness of breath with left arm numbness, troponin negative x 3, present on admission, with T-wave inversions noted on EKG, echo revealed Ebstein's anomaly which can cause these EKG changes Chronic left lower extremity edema and discomfort, venous doppler negative for DVT Mildly elevated liver enzymes, etiology unclear, may be secondary to frequent alcohol use Macrocytic, normochromic anemia, type unknown, B12 or folic acid deficiency ruled out History of nicotine dependence, in remission, patient quit smoking in 2017 Obesity: BMI 37.0 Nurse practitioner note has been reviewed by physician. Signing provider agrees with the documented findings, assessment, and plan of care. Patient Condition at Discharge: Good Plan - Discharge Summary Discharge Rx Participant: No New Discharge Prescriptions: New Lansoprazole [Prevacid] 30 mg PO DAILY #30 cap Continue Docusate [Colace] 100 mg PO DAILY PRN PRN Reason: Constipation Discharge Medication List Docusate [Colace] 100 mg PO DAILY PRN 06/27/16 [History] Lansoprazole [Prevacid] 30 mg PO DAILY #30 cap 09/10/17 [Rx] Follow up Appointment(s)/Referral(s): Prasanna Campuzano MD [STAFF PHYSICIAN] - 1 Week Michele Rider MD [Primary Care Provider] - 1 Week Discharge Disposition: HOME SELF-CARE
--- NOTE | 2017-09-10 14:56 | P.PN ---
Subjective Progress Note Date: 09/10/17 This is a 52-year-old female with no prior documented history of hypertension, no diabetes, no hyperlipidemia, prior history of smoking, who presents to the hospital with symptoms of left leg swelling, she also has been having intermittent epigastric burning which she attributes to her acid reflux, also complaining of lower abdominal pain. Cardiology consultation was requested because of the epigastric burning and the intermittent shortness of breath which she states she's been experiencing. She had an EKG on admission here which showed a normal sinus rhythm with left axis deviation, incomplete right bundle branch block, ST-T wave abnormalities noted in the anterior and inferior leads with evidence of inferior Q waves. According to the patient, she 's been experiencing these heartburn symptoms off and on for some time with or without activity with or without eating. The abdominal discomfort she is complaining of is in the lower abdominal area, she states that she has issues with constipation, and has not moved her bowels since Friday. A venous duplex study of the lower extremities did not reveal any evidence of DVT. Chest x-ray did not reveal any acute process. Blood pressure on admission here 136/60 with a heart rate in the 70s, 95% on room air. Temperature on arrival 99.2. Blood pressure this morning 138/80 with a heart rate in the 60s, 96% on room air. Temperature 97.6. White blood cell count 3.5, hemoglobin 10.3, d-dimer 0.3. Sodium 142, potassium 4.1, BUN 18, creatinine 0.9. Troponin 7 negative 3. BNP level 45. Total bilirubin 1.5, AST 37, ALT 56. Cholesterol 149, LDL 78, triglycerides 216 and HDL 28. At the time of my examination this morning, patient does have significant abdominal and epigastric tenderness on examination. No significant swelling noted in the left leg today. 09/10/2017 Patient was seen and examined this morning, denied any chest discomfort, breathing overall has been stable. Echocardiogram with Doppler study was performed which revealed mild concentric LVH, overall ejection fraction 55-60%, 2-dimensional and Doppler echocardiographic demonstrate findings consistent with Ebstein's anomaly, moderate tricuspid regurg present. Patient did undergo a Lexiscan stress test today, there was a questionable small area of stress- induced reversible ischemia noted. These results were reviewed by Dr. Agueda Campuzano who felt that the patient could be discharged home today to follow-up with him in the office post discharge. All bladder ultrasound was performed yesterday which revealed hepatomegaly with heterogeneous pattern of the liver can be seen with fatty infiltration, hepatitis, or diffuse hepatocellular disease. Hemodynamically the patient is stable today, denies any chest pain, breathing has been stable. Objective - Vital Signs Vital signs: Vital Signs Temp 98 F 09/10/17 12:00 Pulse 70 09/10/17 12:00 Resp 18 09/10/17 12:00 BP 120/74 09/10/17 12:00 Pulse Ox 97 09/10/17 12:00 Intake & Output 09/09/17 09/10/17 09/10/17 18:59 06:59 18:59 Intake Total 720 240 Balance 720 240 Weight 108.8 kg 108.409 kg Intake: Oral 720 240 Other: Voiding Method Toilet Toilet Toilet # Voids 2 1 1 # Bowel Movements 0 - Exam PHYSICAL EXAMINATION: 52-year-old female in no apparent distress at the time of my examination. GENERAL: 52-year-old female complaining of lower abdominal and midepigastric discomfort this morning. HEENT: Head is atraumatic, normocephalic. Pupils equal, round. Sclera anicteric. Conjunctiva are clear. Mucous membranes of the mouth are moist. Neck is supple. There is no elevated jugular venous pressure.] No carotid bruit is heard. HEART EXAMINATION: Heart S1 and S2 with systolic murmur is heard CHEST EXAMINATION: Lungs are clear to auscultation and precussion. No chest wall tenderness is noted on palpation or with deep breathing. ABDOMEN: Soft, positive midepigastric discomfort and lower abdominal tenderness on exam. Bowel sounds are heard. No organomegaly noted. EXTREMITIES: 2+ peripheral pulses with no evidence of peripheral edema and no calf tenderness noted. NEUROLOGIC patient is awake, alert and oriented -3. - Labs CBC & Chem 7: 09/10/17 06:40 09/10/17 06:40 Labs: Abnormal Lab Results - Last 24 Hours (Table) 09/09/17 09/09/17 09/10/17 Range/Units 05:30 05:30 06:40 WBC 2.7 L (3.8-10.6) k/uL RBC 3.27 L (3.80-5.40) m/uL Hgb 11.2 L (11.4-16.0) gm/dL MCV 107.7 H (80.0-100.0) fL Lymphocytes # 0.9 L (1.0-4.8) k/uL Glucose (74-99) mg/dL Ferritin 395.2 H (10.0-291.0) ng/mL Total Bilirubin (0.2-1.3) mg/dL ALT (9-52) U/L RBC Folate 1,141 H (280 - 791) ng/mL 09/10/17 Range/Units 06:40 WBC (3.8-10.6) k/uL RBC (3.80-5.40) m/uL Hgb (11.4-16.0) gm/dL MCV (80.0-100.0) fL Lymphocytes # (1.0-4.8) k/uL Glucose 103 H (74-99) mg/dL Ferritin (10.0-291.0) ng/mL Total Bilirubin 1.7 H (0.2-1.3) mg/dL ALT 60 H (9-52) U/L RBC Folate (280 - 791) ng/mL Microbiology - Last 24 Hours (Table) 09/08/17 16:59 Blood Culture - Preliminary Blood No Growth after 24 hours Assessment and Plan Plan: Assessment and plan #1 left leg swelling, VQ scan negative for DVT. #2 epigastric discomfort, somewhat atypical for acute coronary syndrome. Troponins are negative 3. EKG shows a normal sinus rhythm with anterior and inferior T-wave inversion with inferior Q waves. #3 abdominal discomfort, abnormal liver enzymes #4 prior history of smoking Plan Echocardiogram with Doppler study was performed which revealed a normal left ventricular systolic function. 2-dimensional and Doppler echo demonstrated findings consistent with Ebstein's anomaly, moderate tricuspid regurg. Neda scan stress test demonstrated a small area of reduced uptake involving the inferior septum on stress images, gaited analysis showed normal wall motion with an estimated ejection fraction of 63%. Results were reviewed by Dr. Agueda Campuzano who felt that the patient could safely be discharged home today and follow -up with him in the office in 2-3 weeks. DNP note has been reviewed, I agree with a documented findings and plan of care. Patient was seen and examined.
--- NOTE | 2017-09-10 15:01 | EST ---
EXERCISE STRESS AGE: 52 SEX: F HT: 68" WT: 243 PROTOCOL: Lexiscan Cardiolite Stress Test HEART RATE REST: 60 BLOOD PRESSURE REST: 135/95 MAXIMUM HEART RATE ACHIEVED: 82 MAXIMUM BLOOD PRESSURE: 137/82 85% MPHR: 144 100% MPHR: 169 INDICATIONS: Chest pain, Lucila anomaly CLINICAL INFORMATION: Baseline rhythm is sinus mechanism, rate of 60. Normal axis. RSR prime. Nonspecific ST-T changes. Baseline blood pressure 135/95 mmHg. Patient received an injection of Lexiscan. Electrocardiographic monitoring revealed rare PVCs. There was no evidence of diagnostic ischemic ST deviation. Cardiolite was injected per protocol. CONCLUSION: 1. Nondiagnostic electrocardiograph stress testing with rare premature ventricular contractions. 2. Nuclear images will be reported separately. MMODL / IJN: [id number] /
== END 2017-09-10 14:05 | disposition home or self-care (01) | DRG 307 ==
LOC: EC 15:42 → 6SEL 19:30
PROVIDERS: ADMIT Family Medicine; ATTEND Family Medicine
DX: Q22.5 Ebstein's anomaly (principal); D64.9 Anemia, unspecified; E66.9 Obesity, unspecified; I07.1 Rheumatic tricuspid insufficiency; I10 Essential (primary) hypertension; I45.10 Unspecified right bundle-branch block; K21.9 Gastro-esophageal reflux disease without esophagitis; K59.00 Constipation, unspecified; Z68.37 Body mass index [BMI] 37.0-37.9, adult; Z82.49 Family history of ischemic heart disease and other diseases of the circulatory system; Z87.01 Personal history of pneumonia (recurrent); Z87.891 Personal history of nicotine dependence; Z90.710 Acquired absence of both cervix and uterus; Z88.5 Allergy status to narcotic agent; R74.8 Abnormal levels of other serum enzymes; R60.0 Localized edema
CPT/HCPCS: 36415; 71046; 76705; 78452; 80053; 80061; 82550; 82553; 82607; 82728; 82746; 82747; 83540; 83550; 83880; 84443; 84484; 85025; 85379; 85610; 85730; 87040; 93005; 93017; 93306; 93970; 94640; 96374; 99285

== ENCOUNTER → 2019-02-20 | Outpatient (CLI) | payer BC ==
--- NOTE | 2019-02-20 16:42 | CT ---
EXAMINATION TYPE: CT abdomen w con DATE OF EXAM: 02/20/2019 HISTORY: Intra-abdominal pain, RT side pain, bloating, weight gain CT DLP: 1587.90mGycm Automated Exposure Control for Dose Reduction was Utilized. CONTRAST: CT scan of the abdomen was performed with IV Contrast, patient injected with 100 mL of Isovue 300. COMPARISON: Gallbladder ultrasound dated 09/09/2017 FINDINGS: LUNG BASES: No significant abnormality is appreciated. LIVER/GB: Hepatic parenchyma is diffusely hypoattenuated in comparison to that of the spleen, most co mmonly seen in hepatic steatosis. This finding limits evaluation for hepatic masses. This appears at least moderate in degree with probable focal fatty sparing in the subcapsular right hepatic lobe and around the gallbladder fossa. The liver is enlarged. No intrahepatic biliary ductal dilatation. No ch olelithiasis on CT. PANCREAS: No significant abnormality is seen. SPLEEN: There is an arterially enhancing splenic lesion measuring 1.6 x 1.4 cm on series 3 image 22 t hat becomes less conspicuous on delayed images. This likely represents a hemangioma given this charac teristic and could be confirmed with MRI of the abdomen. The spleen is enlarged injuring 17 cm in scrap metal burner niocaudal dimension. Additional small 9 mm lesion on image 20 is hypoattenuated and could represent a cyst. ADRENALS: No nodularity or thickening. KIDNEYS: Kidneys enhance and excrete symmetrically without hydronephrosis. BOWEL: Very small hiatal hernia. Mild degree colonic fecal stasis. No dilated large or small bowel. LYMPH NODES: No greater than 1cm abdominal or pelvic lymph nodes are appreciated. OSSEOUS STRUCTURES: Moderate degenerative changes are most focal at the lower lumbar spine although t he lumbar spine is incompletely visualized. IMPRESSION: 1. Hepatosplenomegaly. Hepatic steatosis appears at least moderate grade with probable area of focal fatty sparing in the subcapsular right hepatic lobe and around the gallbladder fossa, typical locatio ns. 2. Enhancing splenic lesion with characteristics favoring hemangioma. This could be confirmed with MR abdomen. Additional subcentimeter splenic lesion could represent a small cyst.
== END | disposition home or self-care (01) ==
LOC: RADCTMAIN 11:20
PROVIDERS: ATTEND Family Medicine
DX: D73.89 Other diseases of spleen (principal); K76.0 Fatty (change of) liver, not elsewhere classified; Z88.5 Allergy status to narcotic agent; Z91.030 Bee allergy status
CPT/HCPCS: 74160; Q9967 ×2

== ENCOUNTER → 2019-03-08 | Outpatient (CLI) | payer BC | END | disposition home or self-care (01) | LOC: RADMRIMAIN 16:49 | PROVIDERS: ATTEND Nurse Practitioner Women's Health | DX: Z53.9 Procedure and treatment not carried out, unspecified reason (principal) ==

== ENCOUNTER → 2019-03-24 | Outpatient (CLI) | payer BC ==
[2019-03-24 07:43] LABS: Basophils % (A) 1 %; Eosinophils % (A) 1 %; HCT 31.5 % (34.0-46.0); HGB 9.7 gm/dL (11.4-16.0); Hypochromasia Slight; Lymphocytes # (A) 0.8 k/uL (1.0-4.8); Lymphocytes % (A) 29 %; MCH 34.5 pg (25.0-35.0); MCHC 30.9 g/dL (31.0-37.0); MCV 111.7 fL (80.0-100.0); Macrocytosis Marked; Mean Platelet Volume 8.3; Monocytes # (A) 0.1 k/uL (0-1.0); Monocytes % (A) 5 %; Neutrophils # (A) 1.8 k/uL (1.3-7.7); Neutrophils % (A) 63 %; Platelet Count 161 k/uL (150-450); RBC 2.82 m/uL (3.80-5.40); RDW 15.3 % (11.5-15.5); WBC 2.9 k/uL (3.8-10.6)
[2019-03-24 08:00] LABS: Albumin 4.4 g/dL (3.5-5.0); Calcium 9.2 mg/dL (8.4-10.2); Potassium 4.8 mmol/L (3.5-5.1); Total Bilirubin 2.7 mg/dL (0.2-1.3); Total Protein 7.3 g/dL (6.3-8.2)
[2019-03-24 08:16] LABS: Polychromasia Present
--- NOTE | 2019-03-24 13:39 | NM ---
EXAMINATION TYPE: NM hepatobiliary w EF DATE OF EXAM: 03/24/2019 COMPARISON: CT abdomen 02/20/2019 HISTORY: Cholecystitis, abdomen pain and heartburn TECHNIQUE: After the intravenous administration of 4.6 mCi Tc 99m Mebrofenin hepatobiliary scintigrap hy is performed. Immediate images post injection. FINDINGS: There is satisfactory initial accumulation of tracer by the liver. The gallbladder is visualized wit hin 4 minutes. The small bowel activity is noted on delayed images. At one hour 8 ounces of oral en sure plus is given to mimic CCK and gallbladder ejection fraction is calculated at 63 %, in the cristofer l range. Therefore there is no scintigraphic evidence of cystic or common bile duct obstruction to s uggest acute cholecystitis or gallbladder dyskinesia. IMPRESSION: Normal gallbladder ejection fraction. Some delay in visualization of small bowel activity .
== END | disposition home or self-care (01) ==
LOC: RADNMMAIN 06:53
PROVIDERS: ATTEND Surgery Plastic and Reconstructive Surgery
DX: K81.9 Cholecystitis, unspecified (principal); Z88.5 Allergy status to narcotic agent
CPT/HCPCS: 80053; 85025; 36415; 78226; A9537

== ENCOUNTER → 2019-04-05 | Outpatient (CLI) | payer BC ==
--- NOTE | 2019-04-05 08:03 | US ---
EXAMINATION TYPE: US gallbladder DATE OF EXAM: 04/05/2019 COMPARISON: CT abdomen pelvis dated 02/20/2019 CLINICAL HISTORY: K81.9 Cholecystitis, unspecified. EXAM MEASUREMENTS: Liver Length: 16.8 cm Gallbladder Wall: 0.2 cm CBD: 0.3 cm Right Kidney: 10.6 x 4.2 x 4.5 cm Somewhat limited scan due to large body habitus. Pancreas: partially obscured by bowel gas, portions visualized wnl Liver: Increased attenuation, decreased visualization of vessels suggestive of fatty infiltrate. Thi s finding limits evaluation for hepatic masses. There is probable focal fatty sparing adjacent to the gallbladder Gallbladder: wnl Evidence for sonographic Torres's sign: patient very tender here, but also appears tender throughou t entire ultrasound CBD: wnl Right Kidney: inferior pole obscured by overlying bowel gas IMPRESSION: 1. Sonographic findings most commonly related to hepatic steatosis. This appears at least moderate in degree with probable focal fatty sparing near the gallbladder fossa. Correlate with liver function t ests. 2. No sonographic evidence of cholelithiasis nor acute cholecystitis.
== END ==
LOC: RADUSWWP 06:44
PROVIDERS: ATTEND Surgery Plastic and Reconstructive Surgery
DX: K81.9 Cholecystitis, unspecified (principal)
CPT/HCPCS: 76705

== ENCOUNTER 2019-05-21 14:34 | Emergency (ER) | payer BC ==
[2019-05-21] MEDS ORDERED: ACETAMINOPHEN TAB 500 MG TAB PO STA (14:58)
--- NOTE | 2019-05-21 15:31 | CT ---
EXAMINATION TYPE: CT mastoid wo con DATE OF EXAM: 05/21/2019 COMPARISON: None HISTORY: Pain and swelling behind the right ear and right-sided facial pain. CT DLP: 311.1 mGycm. Automated Exposure Control for Dose Reduction was Utilized. TECHNIQUE: CT scan of internal auditory canal is performed without contrast, thin cut axial images ar e obtained, coronal reformatted images are also reviewed. FINDINGS: Mastoid air cells are well aerated as are the bilateral middle ear cavities. External audit ory canals are patent. Visualized portions of the paranasal sinuses are also well aerated. Incidental ly noted small right-sided ysiel bullosa. Temporomandibular joints are symmetric and unremarkable. T here is mild leftward nasal septal deviation. Ostiomeatal complex is slightly narrowed on the right d ue to also thickening but patent on the left. There are 3 clustered oval smoothly marginated subcutaneous masses in the right occipital soft tissue s on series 201 image 30 and image 25 measuring up to 1.5 cm. Additional similar appearing subcutaneo us nodule is seen posterior to the right ear measuring 4 mm. No surrounding inflammatory change. IMPRESSION: 1. No evidence of mastoiditis nor acute sinusitis on CT. 2. 3 subcutaneous nodules in the right posterior occipital soft tissues and one posterior to the righ t ureter. These may be related to sebaceous cysts. Correlation with physical examination is recommend ed. 3. Slight narrowing of the right ostiomeatal complex by mucosal thickening.
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
[2019-05-21 21:06] VITALS: BP 121/67; PULSE 67; RESP 18; TEMP 98
== END 2019-05-21 16:30 | disposition home or self-care (01) ==
LOC: EC 14:34
DX: L72.3 Sebaceous cyst (principal); Z88.5 Allergy status to narcotic agent; Z87.891 Personal history of nicotine dependence
CPT/HCPCS: 70486; 99283

== ENCOUNTER → 2020-08-22 | Outpatient (CLI) | payer BC ==
--- NOTE | 2020-08-23 08:41 | CT ---
EXAMINATION TYPE: CT abdomen pelvis w con DATE OF EXAM: 08/22/2020 COMPARISON: 02/20/2019 HISTORY: 55-year-old female R10.2 abdominal pain, hematuria TECHNIQUE: Contiguous axial scanning of the abdomen and pelvis following administration of 100 ml Omn ipaque 300 IV contrast. Delayed images through the kidneys and coronal/sagittal reconstructions perf ormed. CT DLP: 1838.1 mGycm Automated exposure control for dose reduction was used. FINDINGS: Heart normal size without pericardial effusion. Strandy atelectasis in the lower lungs. No pleural ef fusion. Redemonstrated hepatosplenomegaly with the liver measuring 19.1 cm and the spleen measuring 18.2 cm o n coronal series. A 1.6 cm nodular focus of enhancement in the spleen is unchanged probably hemangiom a. Suggestion of small cysts also in the spleen unchanged measuring up to 1.1 cm. Low-attenuation hep atic parenchyma suggests fatty infiltration. Portable venous system is patent. No biliary ductal dilatation. Gallbladder, adrenal glands, and pancreas within normal limits. Extrarenal pelvis on both sides. Limited excretion of contrast from the kidneys on the delayed kidney images. Contrast has just entered the collecting systems. No suspicious calcification along the cour se of either ureter. No dilated small bowel, free fluid, or free air. No mesenteric or retroperitoneal lymphadenopathy. Normal appendix. Oral contrast progressed to the proximal transverse colon. Mild stool burden. Bladder is urine distended. Uterus surgically absent. Neither ovary identified. Possible trace fluid within the left cul-de-sac of unknown etiology. Tiny pelvic phlebolith. No pelvic lymphadenopathy. Bones: Advanced degenerative disc disease L4-L5. Facet arthropathy lower lumbar spine. IMPRESSION: 1. NO NEPHROLITHIASIS OR HYDRONEPHROSIS. HOWEVER, THERE IS SLIGHT DELAY IN EXCRETION OF CONTRAST FROM THE KIDNEYS. CORRELATE WITH PATIENT'S KIDNEY FUNCTION TO EXCLUDE BRUCE. 2. REDEMONSTRATED HEPATOSPLENOMEGALY (SPLEEN 18.2 CM) AND HEPATIC STEATOSIS. 3. TRACE FLUID WITHIN THE LEFT SIDE OF THE CUL-DE-SAC OF UNKNOWN ETIOLOGY AND CLINICAL SIGNIFICANCE A S NEITHER OVARY IS CLEARLY IDENTIFIED.
== END | disposition home or self-care (01) ==
LOC: RADCTMAIN 17:37
PROVIDERS: ATTEND Family Medicine
DX: K76.0 Fatty (change of) liver, not elsewhere classified (principal); R16.2 Hepatomegaly with splenomegaly, not elsewhere classified
CPT/HCPCS: 74177; Q9967

== ENCOUNTER → 2022-01-24 | Outpatient (CLI) | payer BC ==
--- NOTE | 2022-01-24 10:17 | US ---
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 Patient has a prominent soft tissue prominence just superior to the gluteal cleft. She said she fredrick ot tolerate pressure there for a long period and it feels like there is fluid. Scanned over the patient's area of concern. No abnormality seen by ultrasound. No suspicious solid or cystic mass or focal fluid collection. IMPRESSION: As above. Findings correlate with CT approximately 18 months earlier.
== END | disposition home or self-care (01) ==
LOC: RADUSWWP 09:36
PROVIDERS: ATTEND Surgery Plastic and Reconstructive Surgery
DX: D16.8 Benign neoplasm of pelvic bones, sacrum and coccyx (principal); M53.3 Sacrococcygeal disorders, not elsewhere classified

== ENCOUNTER → 2022-03-28 | Day surgery (SDC) | payer BC ==
[2022-03-25 14:18] VITALS: BMI 35.4
[~2022-03-28] MED LIST: LACTATED RINGERS 1,000 ML IV SCH; LIDOCAINE 1% (10MG/ML) FOR IV START INTRADERMA ONE; LIDOCAINE 2% INJ 20 MG/ML (2 ML VIAL) ONE; PROPOFOL 10 MG/ML 20 ML VIAL IV ONE
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
[2022-03-28 09:23] VITALS: TEMP 97.7
[2022-03-28 10:13] VITALS: RESP 18
--- NOTE | 2022-03-28 10:21 | P.PCN ---
Date of Procedure: 03/28/22 Description of Procedure: PREOPERATIVE DIAGNOSIS: Change in bowel habit POSTOPERATIVE DIAGNOSIS: Sigmoid diverticulosis stricture Change in bowel habits Colon polyps OPERATION: Colonoscopy to the sigmoid colon. SURGEON: Tamera Alexander MD. ANESTHESIA: MAC. INDICATIONS: The patient is a 57-year-old female who presents for change in bowel habits. Benefits and risks were described and informed consent was obtained. DESCRIPTION OF PROCEDURE: The patient had undergone Sutab prep. She had been brought into the operating room and laid in the left lateral decubitus position. After adequate intravenous sedation, the rectum was examined with 2% lidocaine jelly. External hemorrhoids were encountered. The rectal tone was loose. No lesions were palpated in the rectal vault. An Olympus colonoscope was advanced along the rectum to a very tortuous sigmoid colon. Despite multiple maneuvers, the sigmoid colon had severe tortuosity preventing further advancement of scope including stricture at 30 cm. The scope was passed to 30 cm from the anal verge. Polyps were identified and unable to retrieve. As the patient posed high risk for perforation with persistence of the procedure, the procedure was discontinued. The colon was desufflated. The patient had tolerated the procedure well. Withdrawal time was over 6 minutes. FINDINGS: Aronchik preparation quality scale 2 (1-5) Tortuous sigmoid colon with stricture preventing further advancement of the scope. External prolapsed hemorrhoids. Scope advanced to sigmoid colon at 30 cm. No arteriovenous malformations. Sigmoid colon polyps unable to retrieve No focal colitis. RECOMMENDATIONS: Completion of colonoscopy evaluation with barium enema. Repeat colonoscopy year2022 Plan - Discharge Summary New Discharge Prescriptions: Continue No Known Home Medications Discharge Medication List No Known Home Medications 03/25/22 [History] Follow up Appointment(s)/Referral(s): Tamera Alexander MD [STAFF PHYSICIAN] - 04/23/22 Patient Instructions/Handouts: *Surgery [facility] - (Anesthesia) Endoscopy Discharge Instructions, Barium Enema (DC) Activity/Diet/Wound Care/Special Instructions: Recommend barium enema. Otherwise repeat colonoscopy year2022 Discharge Disposition: HOME SELF-CARE
[2022-03-28 10:55] VITALS: BP 113/77; PULSE 68
--- NOTE | 2022-03-28 13:46 | FL ---
EXAMINATION TYPE: FL barium enema DATE OF EXAM: 03/28/2022 COMPARISON: NONE HISTORY: Failed colonoscopy TECHNIQUE: A single contrast barium enema study is performed. A total of 3 minutes and 32 seconds o f fluoroscopic time was utilized during procedure and 41 images obtained. FINDINGS: Giver view of the abdomen shows overall non-obstructive bowel gas pattern. Air from the at tempted colonoscopy noted. Exam mildly limited due to retained small particles of fecal reading. No s izable polyps. No annular restricting lesion. Mild limitation of evaluation of the cecum. No significant diverticular disease is noted. The terminal ileum was refluxed and appears within normal limits. IMPRESSION: 1. Mildly limited exam of the cecum with evidence of sigmoid redundancy. There is no evidence to sugg est obstruction or annular constricting lesion. No sizable polyps identified. Retained debris limits assessment for polyp evaluation.
== END | disposition home or self-care (01) ==
LOC: ORWHC2ENDO 08:46
PROVIDERS: ATTEND Surgery Plastic and Reconstructive Surgery
DX: K57.30 Diverticulosis of large intestine without perforation or abscess without bleeding (principal); K63.5 Polyp of colon; K64.4 Residual hemorrhoidal skin tags; E66.9 Obesity, unspecified; I10 Essential (primary) hypertension; Z87.09 Personal history of other diseases of the respiratory system; Z90.710 Acquired absence of both cervix and uterus; Z90.89 Acquired absence of other organs; Z87.891 Personal history of nicotine dependence; Z82.49 Family history of ischemic heart disease and other diseases of the circulatory system; Z88.2 Allergy status to sulfonamides
CPT/HCPCS: 74270; 45378; J2704; J2001

== ENCOUNTER → 2022-05-02 | Outpatient (CLI) | payer BC | END | disposition home or self-care (01) | LOC: LABWHC1 11:56 | PROVIDERS: ATTEND Surgery Plastic and Reconstructive Surgery | DX: Z01.818 Encounter for other preprocedural examination (principal); I11.9 Hypertensive heart disease without heart failure; I45.81 Long QT syndrome; Z71.51 Drug abuse counseling and surveillance of drug abuser | CPT/HCPCS: 36415; 80323; 93005 ==

== ENCOUNTER → 2024-01-30 | Outpatient (CLI) | payer OTHER ==
--- NOTE | 2024-01-30 09:37 | US ---
EXAMINATION TYPE: US abdomen complete DATE OF EXAM: 01/30/2024 COMPARISON: CT abdomen pelvis 05/16/2022, 08/22/2020, gallbladder ultrasound 05/16/2022, 04/05/2019 CLINICAL INDICATION: Female, 58 years old with history of D59.10 HEMOLYTIC ANEMIA; Pain splenomegaly TECHNIQUE: Grayscale and color Doppler imaging of the abdomen was performed. FINDINGS: EXAM MEASUREMENTS: Liver Length: 18.1 cm Gallbladder Wall: .2 cm CBD: .4 cm Spleen: 15.4 cm Right Kidney: 11.1 x 3.6 x 4.0 cm Left Kidney: 12.1 x 3.6 x 3.7 cm COIN MACHINE MECHANIC NOTES: Pancreas: Tail obscured by overlying bowel gas Liver: Increased attenuation focal sparing seen near gallbladder 2.7 x 1.2 x 2.0 cm. Gallbladder: No stones seen Evidence for sonographic Torres's sign: No CBD: wnl Spleen: Splenomegaly 15.4 Right Kidney: No hydronephrosis or masses seen Left Kidney: No hydronephrosis or masses seen Upper IVC: wnl Abd Aorta: wnl The liver demonstrates diffuse increased echogenicity with focal fatty sparing near the gallbladder. The intrahepatic portion of the IVC and proximal abdominal aorta are within normal limits. There is no evidence of cholelithiasis. Common bile duct is unremarkable. The visualized portions of the pa ncreas are homogenous. The spleen is mildly enlarged. No focal lesion identified. Kidneys are symmet silvia and free of hydronephrosis. No renal lesions are seen. IMPRESSION: 1. Mild splenomegaly measuring up to 15.4 cm. 2. Hepatic steatosis with focal fatty sparing near the gallbladder. [facility], , 01/30/2024 9:35 AM
== END | disposition home or self-care (01) ==
LOC: RADUSWWP 07:21
PROVIDERS: ATTEND Family Medicine
CPT/HCPCS: 76700

== ENCOUNTER → 2024-09-28 | Outpatient (CLI) | payer BC ==
[2024-09-28 07:22] LABS: ALT 28 U/L (4-34); AST 24 U/L (14-36); African American GFR (CKD) 82 (>60 ml/min/1.73 sqM); Albumin 4.8 g/dL (3.5-5.0); Albumin/Globulin Ratio 1.8; Alkaline Phosphatase 53 U/L (38-126); Anion Gap 9 mmol/L; Blood Urea Nitrogen 21 mg/dL (7-17); Calcium 9.4 mg/dL (8.4-10.2); Carbon Dioxide 25 mmol/L (22-30); Chloride 106 mmol/L (98-107); Globulin 2.6 g/dL; Glucose 115 mg/dL (74-99); Non-African American GFR(CKD) 71 (>60 ml/min/1.73 sqM); Potassium 4.3 mmol/L (3.5-5.1); Sodium 140 mmol/L (137-145); Total Bilirubin 1.9 mg/dL (0.2-1.3); Total Protein 7.4 g/dL (6.3-8.2)
[2024-09-28 08:11] LABS: Basophils # (A) 0.05 10*3/uL (0.00-0.10); Basophils % (A) 1.1 %; Eosinophils # (A) 0.06 10*3/uL (0.04-0.35); Eosinophils % (A) 1.3 %; HCT 37.6 % (37.2-46.3); HGB 12.3 g/dL (12.0-15.0); Lymphocytes # (A) 1.35 10*3/uL (0.90-5.00); Lymphocytes % (A) 29.5 %; MCH 35.1 pg (27.0-32.0); MCHC 32.7 g/dL (32.0-37.0); MCV 107.4 fL (80.0-97.0); Mean Platelet Volume 10.7 fL (9.5-12.2); Monocytes # (A) 0.23 10*3/uL (0.20-1.00); Neutrophils # (A) 2.85 10*3/uL (1.80-7.70); Neutrophils % (A) 62.4 %; Platelet Count 150 10*3/uL (140-440); RDW 13.9 % (11.5-14.5); WBC 4.57 10*3/uL (4.50-10.00)
--- NOTE | 2024-09-28 09:30 | CT ---
EXAMINATION TYPE: CT neck chest w con DATE OF EXAM: 09/28/2024 7:53 AM COMPARISON: None. CLINICAL INDICATION: Female, 59 years old with history of Z87.891 PERSONAL HISTORY OF NICOTINE DEPEND ENCE;, Personal history of nicotine dependence, enlarged lymph nodes in left axilla TECHNIQUE: CT soft tissues neck and CT chest after IV contrast. Coronal and sagittal reconstructions performed. Contrast used:100 ml mL of Isovue [address] DLP: 1223.90 mGycm, Automated exposure control for dose reduction was used. FINDINGS: NECK: Thyroid gland and bilateral submandibular glands are satisfactory. There is a heterogeneous solid cystic mass of the right parotid tail measuring 2.0 cm. An additional 9 mm short axis parotid space lymph node just posteriorly. Enlarged lymph node measuring 1.1 cm short axis left parotid tail. No other cervical adenopathy seen. Nasopharynx appears clear. There is moderate bilateral lingual tonsillar hypertrophy. Couple punctate 2 mm tonsilloliths on the right. Oropharynx otherwise clear. The epiglottis and prevertebral soft tissues are satisfactory. Glottic and subglottic structures as well as the tracheal column and visualized upper lungs are clear . Visualized intracranial structures, paranasal sinuses, and mastoid air cells appear clear. Leftward n yoanna septal deviation. Bones: Moderate degenerative disc disease C4-C7 levels with reversal of the normal cervical lordosis. CHEST: The heart is upper limits of normal in size without pericardial effusion. No significant coronary evita cification is seen. Aorta normal caliber with bovine configuration to the aortic arch. No thoracic lymph adenopathy by CT size criteria. In particular, no axillary adenopathy is seen on th is exam. Strandy scarring or atelectasis medial right mid to lower lung. Lesser degree at the inferior lingula . No consolidation or pleural effusion. A couple adjacent pulmonary nodules lateral right upper lobe measuring up to 5 mm and a 4 mm inferior lingular pulmonary nodule. Tiny hiatal hernia. Visualized upper abdomen shows splenomegaly at 15.0 cm. Bones: Mild degenerative disc disease mid thoracic spine. Normal parenchymal foramen. Mild degenerati ve change sternomanubrial joint. COMBINED IMPRESSION NECK: 1. Right parotid tail mass measuring 2.0 cm with an adjacent enlarged parotid space lymph node measur ing 9 mm short axis. Nerve sheath tumor and salivary gland tumors are in the differential. Further EN T evaluation recommended. 2. Enlarged left parotid space lymph node measuring 1.1 cm short axis. This can also be further asses sed by ENT. 3. Moderate bilateral palatine tonsillar hypertrophy. CHEST: 4. Approximately 3 pulmonary nodules measuring up to 5 mm are nonspecific. Recommend follow-up CT mary[address] st in 6 months to reassess. 5. Splenomegaly at 15.0 cm. Further clinical correlation recommended. 6. Tiny hiatal hernia. [facility], Workstation: [employer], 09/28/2024 9:27 AM
[2024-09-28 09:33] LABS: Pathologist Review NOT INDICATED
== END | disposition home or self-care (01) ==
LOC: RADCTMAIN 06:39
PROVIDERS: ATTEND Family Medicine
DX: K08.89 Other specified disorders of teeth and supporting structures (principal); D59.10 Autoimmune hemolytic anemia, unspecified; J35.1 Hypertrophy of tonsils; R91.8 Other nonspecific abnormal finding of lung field; R16.1 Splenomegaly, not elsewhere classified; R59.0 Localized enlarged lymph nodes; Z87.891 Personal history of nicotine dependence; K44.9 Diaphragmatic hernia without obstruction or gangrene
CPT/HCPCS: 80053; 85025; 70491; 71260; 36415; Q9967